=== PATIENT | male | born 1990 | race African-American/Black ===

== ENCOUNTER 2017-04-28 21:10 | Emergency (ER) | payer OTHER ==
--- NOTE | 2017-04-28 22:15 | RAD ---
LEFT ANKLE THREE VIEWS: 04/28/17 HISTORY: Left ankle injury. FINDINGS: Ankle mortise is intact. No acute fracture or dislocation. A thin linear metallic density projects o shar the anterior medial soft tissues of the ankle, it is 0.7 cm length x 0.1 cm width. IMPRESSION: Small linear metallic foreign body anterior medial aspect of the left ankle. No acute osseous abnorma lities are demonstrated. POS: [facility]
--- NOTE | 2017-04-28 22:47 | CT ---
CT THORACIC SPINE NONCONTRAST: 04/28/17 HISTORY: Fall. Back injury. FINDINGS: Vertebral body heights and alignment are maintained. No acute fracture or dislocation. IMPRESSION: No acute osseous abnormalities are demonstrated. POS: [facility]
[2017-04-28] MEDS ORDERED: Ketorolac Tromethamine 30 MG/ML VIAL ONE (23:16)
== END 2017-04-28 23:44 | disposition home or self-care (01) ==
LOC: ERS 21:10
DX: S20.229A Contusion of unspecified back wall of thorax, initial encounter (principal); J10.1 Influenza due to other identified influenza virus with other respiratory manifestations; M25.572 Pain in left ankle and joints of left foot; I25.2 Old myocardial infarction; Z79.82 Long term (current) use of aspirin; Z79.899 Other long term (current) drug therapy; W11.XXXA Fall on and from ladder, initial encounter
CPT/HCPCS: 72128; 96372; J1885